=== PATIENT | male | born 2000 | race Two or more races ===

== ENCOUNTER 2025-05-31 22:18 | Emergency (ER) | payer MEDICAID ==
[~2025-05-31] VITALS: Ht 162.6 cm; Wt 65.8 kg
[2025-05-31 23:33] VITALS: BP 120/72; TEMP 98.4; O2SAT 96
== END 2025-05-31 23:32 | disposition home or self-care (01) ==
LOC: ER 22:22
DX: S01.01XA Laceration without foreign body of scalp, initial encounter (principal); R51.9 Headache, unspecified; W22.8XXA Striking against or struck by other objects, initial encounter; Y93.89 Activity, other specified; Y92.89 Other specified places as the place of occurrence of the external cause; Y99.8 Other external cause status
CPT/HCPCS: 12002; 70450; 99284; A6403

== ENCOUNTER 2025-06-08 19:26 | Emergency (ER) | payer MEDICAID ==
[~2025-06-08] VITALS: Ht 157.5 cm; Wt 64.9 kg
[2025-06-08 19:43] VITALS: BP 124/81; TEMP 99.1; O2SAT 98
== END 2025-06-08 19:58 | disposition home or self-care (01) ==
LOC: ER 19:28
DX: S01.01XD Laceration without foreign body of scalp, subsequent encounter (principal); X58.XXXD Exposure to other specified factors, subsequent encounter